=== PATIENT | female | born 1970 | race Caucasian/White ===

== ENCOUNTER 2023-10-27 17:16 | Emergency (ER) | payer OTHER ==
[~2023-10-27] VITALS: Ht 167.6 cm; Wt 78.5 kg
[2023-10-27 17:21] VITALS: BP 173/96; PULSE 98; RESP 18; TEMP 97.5; O2SAT 98
[2023-10-27] MEDS: predniSONE 20 mg tablet PO ONE (18:25)
[2023-10-27] MEDS ORDERED: PRED20TA PO (18:26)
== END 2023-10-27 18:28 | disposition home or self-care (01) ==
LOC: ER 17:16
DX: H02.842 Edema of right lower eyelid (principal); Z79.899 Other long term (current) drug therapy
CPT/HCPCS: 99283; J7512